=== PATIENT | male | born 1970 | race Caucasian/White ===

== ENCOUNTER → 2022-05-28 07:16 | Outpatient (CLI) | payer OTHER, SELFPAY ==
--- NOTE | 2022-05-28 07:29 | DI.RAD.S_ITS ---
PROCEDURE: XR SHOULDER RT MIN 2V INDICATIONS: PAIN TO RT. SHOULDER TECHNIQUE: 3 views of the shoulder were acquired. COMPARISON: None. FINDINGS: Bones: No fractures or dislocations. No suspicious bony lesions. Visualized ribs appear intact. Soft tissues: No suspicious soft tissue calcifications. IMPRESSION: Unremarkable right shoulder radiographs Approved by: Supa Waddell M.D. on 05/28/2022 at 9:35
== END ==
PROVIDERS: Referring Provider Family Medicine; Visit Provider Family Medicine
DX: M25.511 Pain in right shoulder (principal)
CPT/HCPCS: 73030

== ENCOUNTER → 2023-11-20 17:15 | Outpatient (CLI) | payer OTHER, SELFPAY ==
[2023-11-20 17:45] LABS: Add Manual Diff / Slide Review NO; Basophils Absolute Auto 0 /uL (0-100); Basophils Percent Auto 1.1 % (0-2); Eosinophils Absolute Auto 100 /uL (0-450); Eosinophils Percent Auto 2.4 % (2-4); Hematocrit 45.8 % (41-53); Hemoglobin 15.8 g/dL (13.5-17.5); Lymphocytes Absolute Auto 1700 /uL (1100-4500); Lymphocytes Percent Auto 39.8 % (25-40); Mean Corpuscular HGB Conc 34.5 % (30-36); Mean Corpuscular Volume 98.5 fL (80-100); Monocytes Absolute Auto 400 /uL (0-900); Monocytes Percent Auto 9.5 % (3-14); Neutrophils Absolute Auto 2000 /uL (1500-7000); Neutrophils Percent Auto 47.2 % (50-75); Platelet Count 163 X10^3/uL (150-400); Red Blood Cell Count 4.64 X10^6/uL (4.5-5.9); Red Cell Distribution Width 12.6 % (11.6-14.8); White Blood Cell Count 4.2 X10^3/uL (4.5-11.0)
[2023-11-20 18:00] LABS: HEMOLYSIS < 15 (0-50); Iron 121 ug/dL (49-181)
[2023-11-20 18:02] LABS: Alanine Aminotransferase 30 IU/L (<50); Albumin 4.4 g/dL (3.5-5.0); Albumin Globulin Ratio 1.6 (1.0-2.8); Alkaline Phosphatase 101 U/L (38-126); Aspartate Aminotransferase 35 IU/L (17-59); BUN Creatinine Ratio 11.3 (6-22); Blood Urea Nitrogen 8 mg/dL (9-20); Calcium 9.1 mg/dL (8.4-10.2); Carbon Dioxide 27 mmol/L (22-32); Chloride 107 mmol/L (98-107); Cholesterol 162 mg/dL (140-199); Estimated Glomerular Filt Rate > 60 mL/min (>60); Globulin 2.7 g/dL (1.7-4.1); Glucose 91 mg/dL (70-100); HDL Cholesterol 53 mg/dL (40-60); HEMOLYSIS < 15 (0-50); LDL Cholesterol Calculated 92 mg/dL (<100); Potassium 3.7 mmol/L (3.4-5.1); Sodium 138 mmol/L (137-145); Total Protein 7.1 g/dL (6.3-8.2); Triglycerides 87 mg/dL (35-150)
[2023-11-20 18:11] LABS: Percent Iron Saturation 56 % (20-50); Total Iron Binding Capacity 218 ug/dL (261-462); Transferrin 157 mg/dL (206-381)
[2023-11-20 18:33] LABS: Prostate Specific Antigen 1.14 ng/mL (0.10-4.00)
[2023-11-20 18:52] LABS: Vitamin B12 508 pg/mL (239-931)
== END ==
PROVIDERS: PCP Family Medicine; Referring Provider Family Medicine; Visit Provider Family Medicine
DX: Z00.00 Encounter for general adult medical examination without abnormal findings (principal); R42 Dizziness and giddiness; E78.5 Hyperlipidemia, unspecified
CPT/HCPCS: 36415; 80053; 80061; 82607; 83540; 83550; 84153; 85025

== ENCOUNTER 2024-08-20 07:59 | Day surgery (SDC) | payer OTHER, SELFPAY ==
[2024-08-20 10:23] VITALS: BP 163/89; PULSE 64; RESP 16; TEMP 36.8; O2SAT 100
[2024-08-20] MEDS: SODIUM CHLORIDE 0.9% 1,000 ML 84 ML IV (10:27)
--- NOTE | 2024-08-20 11:19 | P.HP_ITS ---
History of Present Illness History of Present Illness Date Patient Seen: 08/20/24 Time Patient Seen: 11:19 Chief complaint: SDC - Daughter from colon cancer Narrative: His 28 yo daughter 6 wks ago from stage IV colon cancer.. asymptomatic. FORMERLY [facility] Medical History Family history of colon cancer Family history of CVA Well adult exam Preventative health care Leg cramping Vision disorder Anxiety Migraines (~1981) Iliotibial band syndrome (~1996) Shoulder pain Chicken pox (~1981) Vertigo (~2019) Tinnitus (~2019) Hearing loss (~2019) Surgical History Anesthesia H/O left wrist surgery (~2017) Family History Father History of heart disease Mother History of heart disease Brother Stroke Social History Smoking Status: Never smoker alcohol intake: current Meds Home Medications and Allergies Allergies Allergy/AdvReac Type Severity Reaction Status Date / Time NSAIDS (Non-Steroidal Allergy Mild Verified 08/20/24 10:14 Anti-Inflamma Seasonal Allergy Mild Uncoded 06/07/24 14:47 Review of Systems Review of Systems ROS: Yes All systems reviewed with the patient and are negative except as otherwise documented Exam Vital Signs (past 8 hours): - 08/20/24 10:23 Temperature 98.3 F Pulse Rate 64 Respiratory Rate 16 Blood Pressure 163/89 H Pulse Oximetry 100 Oxygen Delivery Method Room Air Oxygen Delivery Method Room Air Narrative Exam Narrative: Normal abdominal exam. Assessment & Plan Assessment and plan (1) FH: colon cancer in first degree relative <60 years old: Problem details: His 28 yo daughter 6 wks ago from stage IV colon cancer.. asymptomatic. Status: Acute Time-Based Coding :: [TOTAL MINUTES] spent with patient and on the chart (including review of chart, obtaining history, exam, reviewing outside data, placing orders, documenting exam and treatment plan, and counseling patient) on [DATE]. 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
--- NOTE | 2024-08-20 12:02 | P.OP.COLON_ITS ---
Operative Date/Time/Diagnoses Date of procedure: 08/20/24 Time of procedure: 12:02 Pre-op diagnosis: Daughter from colon cancer at 26 yo, 6 wks ago. Procedure & Clinicians Surgeon: Josephine Sanches Procedure Notes Procedure in detail: OPERATIVE / PROCEDURE NOTE Dada Smith, 1970, 54,Male,CSN: [id number] 08/20/24 PREOPERATIVE DIAGNOSIS: Daughter from colon cancer at 26 yo, 6 wks ago. POSTOPERATIVE DIAGNOSIS: Same + Per the colonoscopy to the cecum: NORMAL colon, f/u colonoscopy q 5 yrs. PROCEDURE DONE: Colonoscopy to the cecum. ANESTHESIA: MAC per Anesthesia. COMPLICATIONS: None. SPECIMENS: None. ESTIMATED BLOOD LOSS: NONE. CONDITION: Stable to the PACU. OPERATIVE DESCRIPTION: After proper informed consent was signed by the patient knowing all the risks, benefits, and potential complications and possible alternatives of the procedure, the patient was appropriately identified. Dada Smith underwent a bowel prep that was very efficient ye sterday, and the colon was clean. After institution of sedation on his left lateral decubitus position, a rectal exam was performed. Normal rectal and anal tone was found. The Olympus colonoscope was placed into his anus and under direct visualization was advanced from the rectum to the rectosigmoid to the sigmoid to the left colon, splenic flexure, transverse colon, hepatic flexure, ascending colon, and all the way to the cecum. Circumferential visualization of the mucosa was possible. The appendix aperture was noted. The ileocecal valve was noted. No large tumors. No ulcers. No inflammatory bowel disease changes were noted. No diverticulae noted in the sigmoid colon. In the rectum, the scope was retroflexed, and no internal hemorrhoids were noted. The scope was straightened back again. The colon was decompressed, and the scope was retracted out uneventfully. The patient tolerated the procedure well without any complications, was sent to the PACU in stable condition. RECOMMENDATIONS: Continue high-fiber diet - 30-40 gm/day with daily fiber supplementation. F/u colonoscopy q 5 yrs, due to his strong FH of deadly colon cancer. - Josephine Sanches MD, YFN, LISSETH
[2024-08-20 12:04] VITALS: BP 116/72; PULSE 70; RESP 12; TEMP 36.2; O2SAT 96
[2024-08-20 12:09] VITALS: BP 128/76; PULSE 65; RESP 13; O2SAT 98
[2024-08-20 12:14] VITALS: BP 119/85; PULSE 63; RESP 12; TEMP 36.2; O2SAT 100
[2024-08-20 12:19] VITALS: BP 116/81; PULSE 64; RESP 12; TEMP 36.2; O2SAT 99
[2024-08-20 12:24] VITALS: BP 114/79; PULSE 62; RESP 14; TEMP 36.2; O2SAT 99
== END 2024-08-20 12:44 | disposition home or self-care (01) ==
PROVIDERS: PCP Family Medicine; Referring Provider Surgery; Visit Provider Surgery
PROC: 0DJD8ZZ Inspection of Lower Intestinal Tract, Via Natural or Artificial Opening Endoscopic (ICD-10-PCS; CPT 45378; principal; 2024-08-20 09:30)
DX: Z12.11 Encounter for screening for malignant neoplasm of colon (principal); Z80.0 Family history of malignant neoplasm of digestive organs
CPT/HCPCS: G0105; J2704

== ENCOUNTER → 2025-02-11 14:02 | Outpatient (CLI) | payer OTHER, SELFPAY ==
[2025-02-11 14:49] LABS: Add Manual Diff / Slide Review NO; Hematocrit 44.4 % (41-53); Hemoglobin 15.7 g/dL (13.5-17.5); Lymphocytes Absolute Auto 1000 /uL (1100-4500); Mean Corpuscular HGB Conc 35.3 % (30-36); Mean Corpuscular Hemoglobin 34.6 PG (26-34); Mean Corpuscular Volume 97.9 fL (80-100); Platelet Count 170 X10^3/uL (150-400)
[2025-02-11 15:13] LABS: Alanine Aminotransferase 50 IU/L (<50); Albumin 4.3 g/dL (3.5-5.0); Albumin Globulin Ratio 1.7 (1.0-2.8); Alkaline Phosphatase 84 U/L (38-126); Blood Urea Nitrogen 12 mg/dL (9-20); Calcium 9.0 mg/dL (8.4-10.2); Carbon Dioxide 25 mmol/L (22-32); Chloride 104 mmol/L (98-107); Cholesterol 179 mg/dL (140-199); Estimated Glomerular Filt Rate > 60 mL/min (>60); Globulin 2.6 g/dL (1.7-4.1); Glucose 84 mg/dL (70-99); HDL Cholesterol 59 mg/dL (40-60); HEMOLYSIS < 15 (0-50); Potassium 4.0 mmol/L (3.4-5.1); Sodium 137 mmol/L (137-145); Total Protein 6.9 g/dL (6.3-8.2); Triglycerides 76 mg/dL (35-150)
== END ==
PROVIDERS: PCP Family Medicine; Referring Provider Family Medicine; Visit Provider Family Medicine
DX: Z00.00 Encounter for general adult medical examination without abnormal findings (principal); Z80.0 Family history of malignant neoplasm of digestive organs; Z82.3 Family history of stroke
CPT/HCPCS: 36415; 80053; 80061; 84153; 84154; 85025

== ENCOUNTER → 2025-05-22 17:07 | Outpatient (CLI) | payer OTHER, SELFPAY ==
[2025-05-22 19:02] LABS: Alanine Aminotransferase 30 IU/L (<50); Albumin 4.3 g/dL (3.5-5.0); Albumin Globulin Ratio 1.7 (1.0-2.8); Alkaline Phosphatase 89 U/L (38-126); Blood Urea Nitrogen 13 mg/dL (9-20); Calcium 8.8 mg/dL (8.4-10.2); Carbon Dioxide 30 mmol/L (22-32); Chloride 101 mmol/L (98-107); Estimated Glomerular Filt Rate > 60 mL/min (>60); Globulin 2.6 g/dL (1.7-4.1); Glucose 80 mg/dL (70-99); HEMOLYSIS 27 (0-50); Potassium 3.7 mmol/L (3.4-5.1); Sodium 138 mmol/L (137-145); Total Protein 6.9 g/dL (6.3-8.2)
== END ==
PROVIDERS: PCP Family Medicine; Referring Provider Family Medicine; Visit Provider Physician Assistant
DX: R74.8 Abnormal levels of other serum enzymes (principal)
CPT/HCPCS: 36415; 80053

== ENCOUNTER → 2025-06-23 15:22 | Outpatient (CLI) | payer OTHER, SELFPAY ==
[2025-06-23 17:50] LABS: Add Manual Diff / Slide Review NO; Hematocrit 46.8 % (41-53); Hemoglobin 16.2 g/dL (13.5-17.5); Lymphocytes Absolute Auto 1600 /uL (1100-4500); Mean Corpuscular HGB Conc 34.6 % (30-36); Mean Corpuscular Hemoglobin 34.4 PG (26-34); Mean Corpuscular Volume 99.2 fL (80-100); Platelet Count 187 X10^3/uL (150-400)
[2025-06-23 17:54] LABS: Alanine Aminotransferase 41 IU/L (<50); Albumin 4.2 g/dL (3.5-5.0); Albumin Globulin Ratio 1.7 (1.0-2.8); Alkaline Phosphatase 80 U/L (38-126); Blood Urea Nitrogen 10 mg/dL (9-20); Calcium 8.9 mg/dL (8.4-10.2); Carbon Dioxide 28 mmol/L (22-32); Chloride 104 mmol/L (98-107); Cholesterol 190 mg/dL (140-199); Estimated Glomerular Filt Rate > 60 mL/min (>60); Globulin 2.5 g/dL (1.7-4.1); Glucose 82 mg/dL (70-99); HDL Cholesterol 70 mg/dL (40-60); HEMOLYSIS < 15 (0-50); Potassium 4.0 mmol/L (3.4-5.1); Sodium 138 mmol/L (137-145); Total Protein 6.7 g/dL (6.3-8.2); Triglycerides 79 mg/dL (35-150)
[2025-06-23 18:30] LABS: Hemoglobin A1C% w Est Avg Glu 5.0 % (4.0-6.0)
[2025-06-23 18:31] LABS: TSH w/ Reflex to FT4 1.06 uIU/mL (0.47-4.68)
== END ==
PROVIDERS: PCP Family Medicine; Referring Provider Family Medicine; Visit Provider Family Medicine
DX: Z00.00 Encounter for general adult medical examination without abnormal findings (principal); R03.0 Elevated blood-pressure reading, without diagnosis of hypertension; F41.9 Anxiety disorder, unspecified; R53.83 Other fatigue; H91.92 Unspecified hearing loss, left ear; Z82.3 Family history of stroke; Z80.0 Family history of malignant neoplasm of digestive organs
CPT/HCPCS: 36415; 80053; 80061; 83036; 84402; 84403; 84443; 85025

== ENCOUNTER → 2025-06-25 16:36 | Outpatient (CLI) | payer OTHER, SELFPAY ==
--- NOTE | 2025-06-25 16:38 | DI.MRI.S_ITS ---
PROCEDURE: MR BRAIN (IAC) WWO CON INDICATIONS: Tinnitus, please evaluate for acoustic neuroma TECHNIQUE: Noncontrast sagittal T1 spin echo, axial FLAIR, axial gradient echo, axial diffusion and ADC through the brain. Axial thin-slice 3D CISS, coronal TruFISP, axial T1 spin echo with fat saturation through the internal auditory canals. After the administration of contrast, thin slice axial and coronal T1 spin echo with fat saturation through the internal auditory canals, and axial and coronal and sagittal T1 spin echo with fat saturation through the brain. COMPARISON: None. FINDINGS: Image quality: Excellent. Cerebellopontine angles: No cerebellopontine angle masses. Inner ear structures appear normally formed. No suspicious enhancement in the internal auditory canal or along the course of the 7th cranial nerve. CSF spaces: Ventricles are normal in size and shape. No extra-axial fluid collections. Basal cisterns are patent. Brain: No intracranial bleeds or mass effects. Valentine-white matter interface is intact. No abnormal intracranial enhancement. Diffusion weighted images demonstrate no acute ischemic insults. Brainstem appears normal. Normal intravascular flow voids are present. A few scattered foci of T2 weighted hyperintensity can be seen within the periventricular deep white matter. In a patient of this age, these are most likely related to early chronic small vessel ischemic change. Skull and face: Calvarial marrow signal is normal. Orbits appear normal. Sinuses: Mucous retention cysts can be seen within the left maxillary sinus. Sinuses and mastoids are otherwise relative clear. IMPRESSION: No imaging explanation is found for this patient's presenting symptoms. No masses or abnormal enhancement are seen within the cerebellopontine angle cisterns or within the internal auditory canals. Dictated by: Joseph Maharaj M.D. on 06/25/2025 at 16:36 Approved by: Joseph Maharaj M.D. on 06/25/2025 at 16:37
== END ==
LOC: MRI 16:37
PROVIDERS: PCP Family Medicine; Referring Provider Family Medicine; Visit Provider Family Medicine
DX: H91.90 Unspecified hearing loss, unspecified ear (principal)
CPT/HCPCS: 70553; A9579